=== PATIENT | female | born 1950 | race Caucasian/White ===

== ENCOUNTER → 2016-12-28 | Outpatient (CLI) | payer OTHER | LOC: FIMAGING 10:39 | DX: Z12.31 Encounter for screening mammogram for malignant neoplasm of breast (principal); Z13.820 Encounter for screening for osteoporosis; M81.0 Age-related osteoporosis without current pathological fracture; Z78.0 Asymptomatic menopausal state; Z85.3 Personal history of malignant neoplasm of breast | CPT/HCPCS: G0202 ==

== ENCOUNTER → 2017-01-18 | Outpatient (CLI) | payer OTHER ==
[~2017-01-18] MED LIST: BENZOCAINE UNIT DOSE SPRAY HURRICAINE MM ONE; DEPO METHYLPREDNISOLONE 80 MG/ML SDV ONE; IOPAMIDOL (ISOVUE 370) 100 ML BTL IV ONE; LIDOCAINE 1% 30 ML SDV ONE; NA BICARBONATE 50 MEQ/50 ML VIAL ONE; ROPIVACAINE HCL 150 MG/30 ML INJ ONE
== END ==
LOC: FIMAGING 12:53
PROVIDERS: ATTEND Orthopaedic Surgery
PROC: 3E0U3BZ Introduction of Anesthetic Agent into Joints, Percutaneous Approach (ICD-10-PCS; principal; 2017-01-18)
PROC: 3E0U33Z Introduction of Anti-inflammatory into Joints, Percutaneous Approach (ICD-10-PCS; principal; 2017-01-18)
DX: M16.12 Unilateral primary osteoarthritis, left hip (principal)
CPT/HCPCS: 20610; 77002; J1040; J2795; Q9967

== ENCOUNTER → 2018-01-06 | Outpatient (CLI) | payer OTHER | LOC: FIMAGING 09:23 | PROVIDERS: ATTEND Internal Medicine | DX: Z12.31 Encounter for screening mammogram for malignant neoplasm of breast (principal); Z80.3 Family history of malignant neoplasm of breast ==

== ENCOUNTER 2018-02-10 07:53 | Emergency (ER) | payer OTHER ==
[2018-02-10] MEDS ORDERED: NS 1,000 ML IV ONE (08:44)
--- NOTE | 2018-02-10 08:44 | EDPHY ---
H & P Stated Complaint: diarrhea/has appt next week with [facility] of [facility] Time Seen by Provider: 02/10/18 08:22 HPI/ROS: CHIEF COMPLAINT: Diarrhea HISTORY OF PRESENT ILLNESS: 67-year-old female presents with recurrent diarrhea. Onset of watery diarrhea 1 month ago. 10+ episodes of diarrhea daily for 2 days, relieved with Imodium. Feels better for few days and then has recurrent diarrhea. She has had multiple similar episodes. Onset of watery diarrhea yesterday, persistent since then, without relief from Imodium. She is able to tolerate a regular diet, without nausea or vomiting. No abdominal pain or fever. No recent foreign travel or bad food intake. She has an appointment with Gastroenterology next week. REVIEW OF SYSTEMS: complete 10 point ROS negative except at noted in the HPI - Personal History Current Tetanus/Diphtheria Vaccine: Unsure - Medical/Surgical History Hx Asthma: No Hx Chronic Respiratory Disease: No Hx Diabetes: No Hx Cardiac Disease: No Hx Renal Disease: No Hx Cirrhosis: No Hx Alcoholism: No Hx HIV/AIDS: No Hx Splenectomy or Spleen Trauma: No Other PMH: depression - Family History Significant Family History: No pertinent family hx - Social History Smoking Status: Never smoked Drug Use: None - Physical Exam Exam: General Appearance: Alert, pleasant, well hydrated Eyes: Pupils equal and round, no conjunctival pallor ENT, Mouth: Mucous membranes moist Neck: Normal inspection Respiratory: Lungs are clear to auscultation Cardiovascular: Regular rate and rhythm Gastrointestinal: Abdomen is soft and nontender Neurological: A&O, nonfocal exam Skin: Warm and dry Extremities: Normal inspection Psychiatric: Mood and affect normal Constitutional: Initial Vital Signs Temperature (C) 36.9 C 02/10/18 07:56 Heart Rate 73 02/10/18 07:56 Respiratory Rate 17 02/10/18 07:56 Blood Pressure 108/79 02/10/18 07:56 O2 Sat (%) 98 02/10/18 07:56 O2 Delivery Mode Room Air Allergies/Adverse Reactions: No Known Allergies Allergy (Verified 02/10/18 07:54) Home Medications: Medication Instructions Recorded Abilify 02/10/18 Immodium 02/10/18 Lamotrigine 02/10/18 PROPRANOLOL-HCTZ 80-25 MG TAB 02/10/18 Seroquel 02/10/18 Medical Decision Making ED Course/Re-evaluation: This patient presents with recurrent diarrhea. She is well-hydrated, nontoxic- appearing and has a normal abdominal exam. A GI pathogen panel was sent. IV normal saline 1 L given. Dietary instructions given. She will follow up with her primary care physician and keep her appointment with gastroenterology. Warning signs discussed. Differential Diagnosis: Differential diagnosis includes though is not limited to infectious diarrhea, dehydration, IBS, food sensitivity, pseudomembranous colitis. - Data Points Laboratory Results: Laboratory Results 02/10/18 08:15 02/10/18 08:15 02/10/18 02/10/18 08:15 08:15 WBC 5.66 10^3/uL 10^3/uL (3.80-9.50) RBC 4.74 10^6/uL 10^6/uL (4.18-5.33) Hgb 14.5 g/dL g/dL (12.6-16.3) Hct 45.0 % % (38.0-47.0) MCV 94.9 fL fL (81.5-99.8) MCH 30.6 pg pg (27.9-34.1) MCHC 32.2 g/dL L g/dL (32.4-36.7) RDW 13.4 % % (11.5-15.2) Plt Count 237 10^3/uL 10^3/uL (150-400) MPV 9.8 fL fL (8.7-11.7) Neut % (Auto) 48.4 % % (39.3-74.2) Lymph % (Auto) 32.7 % % (15.0-45.0) [place] % (Auto) 10.4 % % (4.5-13.0) Eos % (Auto) 7.6 % % (0.6-7.6) Baso % (Auto) 0.7 % % (0.3-1.7) Nucleat RBC Rel Count 0.0 % % (0.0-0.2) Absolute Neuts (auto) 2.74 10^3/uL 10^3/uL (1.70-6.50) Absolute Lymphs (auto) 1.85 10^3/uL 10^3/uL (1.00-3.00) Absolute Monos (auto) 0.59 10^3/uL 10^3/uL (0.30-0.80) Absolute Eos (auto) 0.43 10^3/uL H 10^3/uL (0.03-0.40) Absolute Basos (auto) 0.04 10^3/uL 10^3/uL (0.02-0.10) Absolute Nucleated RBC 0.00 10^3/uL 10^3/uL (0-0.01) Immature Gran % 0.2 % % (0.0-1.1) Immature Gran # 0.01 10^3/uL 10^3/uL (0.00-0.10) Sodium 142 mEq/L mEq/L (135-145) Potassium 4.5 mEq/L mEq/L (3.5-5.2) Chloride 105 mEq/L mEq/L (97-110) Carbon Dioxide 22 mEq/l mEq/l (22-31) Anion Gap 15 mEq/L mEq/L (8-16) BUN 21 mg/dL mg/dL (7-23) Creatinine 0.9 mg/dL mg/dL (0.6-1.0) Estimated GFR > 60 Glucose 84 mg/dL mg/dL (70-100) Calcium 9.3 mg/dL mg/dL (8.5-10.4) Microbiology Results: MICROBIOLOGY 02/10/18 08:15 Stool Gastrointestinal Tract Panel (PCR) - Final No Organism Detected Medications Given: Discontinued Medications Sodium Chloride (Ns) 1,000 mls @ 3,000 mls/hr IV ONCE ONE Stop: 02/10/18 09:03 Last Admin: 02/10/18 08:46 Dose: 1,000 mls Departure - Departure Disposition: Home, Routine, Self-Care Clinical Impression: Diarrhea Qualifiers: Diarrhea type: unspecified type Qualified Code(s): R19.7 - Diarrhea, unspecified Condition: Good Instructions: Acute Diarrhea (ED) Additional Instructions: Pedialyte for 24 hr. Gradually advance your diet to the BRAT diet. This diet consists of bananas, rice, applesauce and toast. You may take Imodium as directed on the package label for diarrhea. Call in 24 hr for stool study results. Keep your appointment with gastroenterology. Return for abdominal pain, bloody stool, vomiting, dehydration or any concerns. Referrals: Fouzia Stanford MD [Primary Care Provider] - As per Instructions
[2018-02-10 08:51] LABS: PLATELET COUNT 237 10^3/uL (150-400)
[2018-02-10 09:10] VITALS: BP 138/85
== END 2018-02-10 09:10 | disposition home or self-care (01) ==
DX: R19.7 Diarrhea, unspecified (principal)

== ENCOUNTER → 2018-03-25 | Outpatient (CLI) | payer OTHER | LOC: FIMAGING 08:46 | PROVIDERS: ATTEND Internal Medicine | DX: Z13.820 Encounter for screening for osteoporosis (principal); M81.0 Age-related osteoporosis without current pathological fracture ==

== ENCOUNTER → 2019-01-17 | Outpatient (CLI) | payer OTHER | LOC: FIMAGING 13:35 | PROVIDERS: ATTEND Internal Medicine | DX: Z12.31 Encounter for screening mammogram for malignant neoplasm of breast (principal); Z80.3 Family history of malignant neoplasm of breast ==